=== PATIENT | male | born 1950 | race Caucasian/White ===

== ENCOUNTER 2022-06-16 15:09 | Observation (INO) | payer MEDICARE ==
[~2022-06-16 15:09] MED LIST: Iopamidol-370 76% 500 ML 1 ML ONE
[2022-06-16 16:15] LABS: #Basophils 0.1 thou/uL (0.0-0.2); #Eosinphils 0.1 thou/uL (0.0-0.7); #Monocytes 0.7 thou/uL (0.11-0.59); #Neutrophils 6.3 thou/uL (1.40-6.50); %Basophils 0.8 % (0.0-1.0); %Lymphocytes 21.8 % (21.0-51.0); %Monocytes 7.8 % (0.0-10.0); %Neutrophils 68.6 % (42.0-75.0); Hemoglobin 17.4 g/dL (14.0-18.0); Mean Corpuscular Hemoglobin 31.9 pg (27.0-31.0); Mean Corpuscular Volume 93.9 fL (78.0-98.0); Mean Platelet Volume 9.5 fL (7.4-10.4); Platelet Count 144 thou/uL (130-400); RBC Distribution Width 12.1 % (11.5-14.5); Red Blood Cell (RBC) Count 5.44 mill/uL (4.70-6.10); White Blood Cell (WBC) Count 9.2 thou/uL (4.8-10.8)
[2022-06-16 16:21] LABS: BHCG - Serum Negative
[2022-06-16 16:22] LABS: Pregs Control Background? CLEAR/WHITE (CLR/WHITE); Pregs Control Bar Appear? YES (CONTROL BAR)
[2022-06-16 16:40] LABS: ALT (SGPT) 71 U/L (8-55); AST (SGOT) 38 U/L (5-34); Albumin 4.5 g/dL (3.4-4.8); Alkaline Phosphatase 56 U/L (40-110); Anion Gap 17 mmol/L (10-20); BUN (Urea Nitrogen) 19 mg/dL (8.4-25.7); Bilirubin, Total 1.6 mg/dL (0.2-1.2); Calc. Creatinine Clearance 0 mL/min (70-130); Calcium 9.5 mg/dL (7.8-10.44); Carbon Dioxide 23 mmol/L (23-31); Chloride 102 mmol/L (98-107); Estimated GFR 65; Glucose 125 mg/dL (83-110); Lipase 46 U/L (8-78); Magnesium 1.6 mg/dL (1.6-2.6); Potassium 3.1 mmol/L (3.5-5.1); Protein, Total 7.5 g/dL (5.8-8.1); Sodium 139 mmol/L (136-145)
[2022-06-16 17:45] LABS: Bilirubin Negative (Negative); Blood, Urine Negative (Negative); Clarity Clear (Clear); Glucose, Urine (Dipstick) Normal (Negative); Ketone, Urine Negative (Negative); Leukocyte Negative Leu/uL (Negative); Nitrite Negative (Negative); Protein, Urine (Dipstick) Negative (Neg-Trace); Specific Gravity, Urine 1.024 (1.002-1.036); Urobilinogen Normal mg/dL (Less than 2); pH, Urine 5.5 (5.0-9.0)
[2022-06-16] MEDS ORDERED: Ondansetron PF 4 MG/2 ML Vial IVP PRN (21:08)
[2022-06-16] MEDS ORDERED: Acetaminophen 325 MG TAB PO PRN (21:08)
[2022-06-16] MEDS ORDERED: Acetaminophen 650 MG Suppository PR PRN (21:08)
[2022-06-16] MEDS ORDERED: Ondansetron ODT 4 MG TAB PO PRN (21:08)
[2022-06-16] MEDS ORDERED: hydrALAZINE 20 MG/ML VIAL SLOW IVP PRN (21:11)
[2022-06-16] MEDS ORDERED: Electrolyte Replacement Protocol 1 EACH FS SCH (21:15)
[2022-06-17] MEDS ORDERED: Magnesium 2 GM/50 ML(in water) 2 GM in Premix Bag 1 BAG IVPB SCH (01:45)
[2022-06-17] MEDS ORDERED: Aspirin 81 mg Enteric Coated Tablet PO SCH (02:00)
[2022-06-17] MEDS ORDERED: Potassium Chloride 20 MEQ TAB PO SCH ×3 (02:00→16:15)
[2022-06-17 04:43] LABS: #Eosinphils 0.2 thou/uL (0.0-0.7); #Lymphocytes 2.2 thou/uL (1.20-3.40); #Monocytes 0.8 thou/uL (0.11-0.59); #Neutrophils 6.2 thou/uL (1.40-6.50); %Basophils 0.5 % (0.0-1.0); %Eosinophils 1.9 % (0.0-10.0); %Lymphocytes 23.1 % (21.0-51.0); %Monocytes 8.7 % (0.0-10.0); %Neutrophils 65.8 % (42.0-75.0); Hemoglobin 16.7 g/dL (14.0-18.0); Mean Corpuscular Hemoglobin 31.9 pg (27.0-31.0); Mean Corpuscular Volume 93.9 fL (78.0-98.0); Mean Platelet Volume 9.4 fL (7.4-10.4); Platelet Count 135 thou/uL (130-400); Red Blood Cell (RBC) Count 5.23 mill/uL (4.70-6.10); White Blood Cell (WBC) Count 9.4 thou/uL (4.8-10.8)
[2022-06-17 04:55] LABS: Hemoglobin A1c 6.6 % (4.0-6.0)
[2022-06-17 05:06] LABS: Anion Gap 16 mmol/L (10-20); BUN (Urea Nitrogen) 18 mg/dL (8.4-25.7); Calc. Creatinine Clearance 81 mL/min (70-130); Calcium 9.1 mg/dL (7.8-10.44); Carbon Dioxide 23 mmol/L (23-31); Cardiac Risk 3.4 (Less than 4.5); Chloride 104 mmol/L (98-107); Cholesterol 110 mg/dl (< 200 Desired); Estimated GFR 79; Glucose 110 mg/dL (83-110); HDL Cholesterol 32 mg/dL (>60 Neg Risk); LDL Cholesterol, Calculated 57 mg/dL; Magnesium 2.2 mg/dL (1.6-2.6); Potassium 3.3 mmol/L (3.5-5.1); Sodium 140 mmol/L (136-145); Triglycerides 104 mg/dL (Less than 150)
[2022-06-17] MEDS: Enoxaparin Sodium 40 MG/0.4 ML SYRINGE SC SCH (09:20)
[2022-06-17] MEDS: Aspirin 81 mg Enteric Coated Tablet PO SCH (09:20)
[2022-06-17] MEDS ORDERED: Magnevist 469MG/ML 20 ML VIAL ONE (10:18)
[2022-06-17] MEDS ORDERED: Lisinopril 5 MG TAB PO SCH (10:30)
[2022-06-17 13:50] VITALS: BMI 26.3
[2022-06-17] MEDS ORDERED: Electrolyte Replacement Protocol 1 EACH FS SCH (16:00)
[2022-06-17 16:06] LABS: Potassium 3.1 mmol/L (3.5-5.1)
[2022-06-17] MEDS ORDERED: Atorvastatin Calcium 40 MG TAB PO SCH (21:00)
[2022-06-17 22:32] LABS: Potassium 3.2 mmol/L (3.5-5.1)
[2022-06-18 06:30] LABS: Anion Gap 19 mmol/L (10-20); BUN (Urea Nitrogen) 15 mg/dL (8.4-25.7); Calc. Creatinine Clearance 75 mL/min (70-130); Calcium 9.4 mg/dL (7.8-10.44); Carbon Dioxide 22 mmol/L (23-31); Chloride 104 mmol/L (98-107); Estimated GFR 73; Glucose 133 mg/dL (83-110); Potassium 3.5 mmol/L (3.5-5.1); Sodium 141 mmol/L (136-145)
[2022-06-18] MEDS ORDERED: Potassium Chloride 20 MEQ TAB PO SCH (08:00)
[2022-06-18 08:21] VITALS: TEMP 98.2
[2022-06-18] MEDS: Aspirin 81 mg Enteric Coated Tablet PO SCH (08:37)
[2022-06-18] MEDS: Enoxaparin Sodium 40 MG/0.4 ML SYRINGE SC SCH (08:37)
[2022-06-18] MEDS ORDERED: Lisinopril 5 MG TAB PO SCH (09:00)
[2022-06-18] MEDS ORDERED: Atenolol 25 MG TAB PO SCH (10:00)
[2022-06-18 10:01] VITALS: BP 142/83
[2022-06-19] MEDS ORDERED: Atenolol 25 MG TAB PO SCH (09:00)
== END 2022-06-18 10:35 | disposition home or self-care (01) ==
LOC: ERS 15:09 → 2SW 19:25
PROVIDERS: ADMIT Internal Medicine; ATTEND Internal Medicine
DX: H49.02 Third [oculomotor] nerve palsy, left eye (principal); E87.6 Hypokalemia; E83.42 Hypomagnesemia; I10 Essential (primary) hypertension; R00.1 Bradycardia, unspecified; R73.09 Other abnormal glucose; Z79.899 Other long term (current) drug therapy; Z20.822 Contact with and (suspected) exposure to COVID-19
CPT/HCPCS: 70496; 70498; 70553; 71045; 80048 ×2; 80053; 80061; 81003; 83036; 83690; 83735 ×2; 84132; 84484; 84703; 85025 ×2; 85652; 86140; 93005 ×2; 93306; U0003; U0005; 36415; 93010; 96365; 96372; A9579; G0378; J1650; J3475; Q9967